=== PATIENT | female | born 1990 | race Hispanic/Latino ===

== ENCOUNTER 2017-05-25 16:43 | Emergency (ER) | payer MEDICAID, SELFPAY ==
[2017-05-25 18:50] LABS: CONTROL LINE UCG INT CTR LINE PRESENT; URINE PREG TEST NEGATIVE (NEGATIVE)
[2017-05-25 19:00] LABS: KETONE, URINE AUTO RFX NEGATIVE (NEGATIVE); LEUKOCYTE ESTERASE UR AUTO RFX 2+ (NEGATIVE); MUCUS, URINE RFX SMALL (NEGATIVE); NITRITE, URINE AUTO RFX NEGATIVE (NEGATIVE); RBC, URINE AUTO RFX 9 /HPF (0-3); SPECIFIC GRAVITY UR AUTO RFX 1.013 (1.002-1.035); SQUAM EPITHELIAL CELL UR AURFX 2 /HPF (0-6); WBC, URINE AUTO RFX 115 /HPF (0-3)
[2017-05-25] MEDS: MORPHINE 4 MG/ML 1ML VIAL (J2270) IV ×2 (20:32)
[2017-05-25] MEDS: NS 1,000 ML IV ×2 (20:32)
[2017-05-25 20:33] LABS: BASO % 0.3 % (0.0-1.0); EOS # 0.1 10^3/uL (0.0-0.50); EOS % 0.5 % (0.0-3.0); HEMATOCRIT 40.8 % (36.0-47.0); HEMOGLOBIN 13.8 g/dl (12.0-16.0); IMMATURE GRANULOCYTE % 0.3 % (0-3.0); LYMPH % 28.1 % (24.0-44.0); MEAN CORPUSCULAR HEMOGLOBIN 30.3 pg (27.0-33.0); MEAN CORPUSCULAR HGB CONC 33.8 g/dl (32.0-36.5); MEAN CORPUSCULAR VOLUME 89.5 fl (80.0-96.0); MONO # 0.8 10^3/uL (0.0-0.8); MONO % 7.7 % (0.0-5.0); NEUTROPHILS # 6.7 10^3/uL (1.8-7.7); NEUTROPHILS % 63.1 % (36.0-66.0); PLATELET COUNT, AUTOMATED 239 10^3/uL (150-450); RED BLOOD COUNT 4.56 10^6/uL (4.00-5.40); RED CELL DISTRIBUTION WIDTH 12.4 % (11.5-14.5); WHITE BLOOD COUNT 10.6 10^3/uL (4.0-10.0)
[2017-05-25 21:05] LABS: ALBUMIN 4.6 GM/DL (3.2-5.2); ALBUMIN/GLOBULIN RATIO 1.24 (1.00-1.93); ALKALINE PHOSPHATASE 81 U/L (45-117); ALT/SGPT 18 U/L (12-78); ANION GAP 9 MEQ/L (8-16); AST/SGOT 17 U/L (7-37); BILIRUBIN,DIRECT 0.1 MG/DL (0.0-0.2); BILIRUBIN,TOTAL 0.3 MG/DL (0.2-1.0); BLOOD UREA NITROGEN 8 MG/DL (7-18); CALCIUM LEVEL 9.3 MG/DL (8.5-10.1); CARBON DIOXIDE LEVEL 25 MEQ/L (21-32); CHLORIDE LEVEL 106 MEQ/L (98-107); CREATININE FOR GFR 0.68 MG/DL (0.55-1.30); GLOMERULAR FILTRATION RATE > 60.0 (>60); GLUCOSE, FASTING 86 MG/DL (70-100); LIPASE 103 U/L (73-393); POTASSIUM SERUM 4.1 MEQ/L (3.5-5.1); SODIUM LEVEL 140 MEQ/L (136-145); TOTAL PROTEIN 8.3 GM/DL (6.4-8.2)
[2017-05-25] MEDS: CIPROFLOXACIN 400 MG in APPROPRIATE DILUENT 1 EA IV (21:29)
== END 2017-05-25 22:36 | disposition home or self-care (01) ==
LOC: M ED 16:43
DX: N10 Acute pyelonephritis (principal); K59.00 Constipation, unspecified; Z79.82 Long term (current) use of aspirin
CPT/HCPCS: J2270

== ENCOUNTER → 2018-01-02 | Outpatient (REF) | payer OTHER | LOC: M LAB REF 17:35 | DX: Z12.4 Encounter for screening for malignant neoplasm of cervix (principal) ==

== ENCOUNTER 2019-05-18 09:09 | Emergency (ER) | payer BC, OTHER ==
[~2019-05-18] VITALS: Ht 167.6 cm; Wt 57.8 kg
[2019-05-18 09:09] VITALS: BP 125/61
[~2019-05-18 09:09] MED LIST: ASPI81TA85 PO; CIPR-249 PO
[2019-05-18] MEDS ORDERED: CETIRIZINE (ZyrTEC) 10 MG TAB PO ONE (09:45)
[2019-05-18] MEDS ORDERED: diphenhydrAMINE 25 MG CAP PO ONE (09:45)
[2019-05-18] MEDS ORDERED: predniSONE 50 MG TAB PO ONE (09:45)
[2019-05-18] MEDS ORDERED: DIPH25CA32 PO (09:56)
[2019-05-18] MEDS ORDERED: PRED10TA2 PO (09:56)
[2019-05-18] MEDS ORDERED: CETI10CH PO (09:56)
== END 2019-05-18 10:03 | disposition home or self-care (01) ==
LOC: M ED 09:09
DX: T78.40XA Allergy, unspecified, initial encounter (principal); L29.9 Pruritus, unspecified

== ENCOUNTER → 2020-10-22 | Outpatient (REF) | payer BC ==
[~2020-10-22] MED LIST changes: -ASPI81TA85 PO; +ASPI81TA86 PO; +CETI10CH PO; +DIPH25CA32 PO; +PRED10TA2 PO
== END ==
LOC: M LAB REF 19:51
PROVIDERS: ATTEND Nurse Practitioner Family
DX: R39.0 Extravasation of urine (principal)

== ENCOUNTER → 2022-08-15 | Outpatient (CLI) | payer BC ==
[~2022-08-15] MED LIST changes: +DIPH-435 PO; -DIPH25CA32 PO
[2022-08-15 17:51] LABS: HEMATOCRIT 35.4 % (36.0-47.0); MEAN CORPUSCULAR HEMOGLOBIN 31.3 pg (27.0-33.0); MEAN CORPUSCULAR HGB CONC 33.9 g/dl (32.0-36.5); MEAN CORPUSCULAR VOLUME 92.2 fl (80.0-96.0); PLATELET COUNT, AUTOMATED 245 10^3/uL (150-450); RED BLOOD COUNT 3.84 10^6/uL (4.00-5.40); WHITE BLOOD COUNT 9.6 10^3/uL (4.0-10.0)
[2022-08-15 18:24] LABS: HIV 1&2 SCREEN NEGATIVE (NEGATIVE)
[2022-08-15 19:38] LABS: GC DNA AMPLIFICATION NEGATIVE (NEGATIVE)
== END ==
LOC: M PLALAB 15:06
PROVIDERS: ATTEND Advanced Practice Midwife
DX: Z34.01 Encounter for supervision of normal first pregnancy, first trimester (principal); Z3A.00 Weeks of gestation of pregnancy not specified

== ENCOUNTER → 2022-09-19 | Outpatient (CLI) | payer BC | LOC: M PLALAB 15:31 | PROVIDERS: ATTEND Advanced Practice Midwife | DX: Z34.82 Encounter for supervision of other normal pregnancy, second trimester (principal) ==

== ENCOUNTER → 2022-10-30 | Outpatient (CLI) | payer BC | LOC: M WHC 07:07 | PROVIDERS: ATTEND Obstetrics & Gynecology | DX: Z34.92 Encounter for supervision of normal pregnancy, unspecified, second trimester (principal) ==

== ENCOUNTER → 2023-01-08 | Outpatient (CLI) | payer BC ==
[2023-01-08 16:04] LABS: HEMATOCRIT 30.6 % (36.0-47.0); HEMOGLOBIN 10.1 g/dl (12.0-15.5); MEAN CORPUSCULAR HEMOGLOBIN 31.1 pg (27.0-33.0); MEAN CORPUSCULAR VOLUME 94.2 fl (80.0-96.0); PLATELET COUNT, AUTOMATED 221 10^3/uL (150-450); RED BLOOD COUNT 3.25 10^6/uL (4.00-5.40); WHITE BLOOD COUNT 10.9 10^3/uL (4.0-10.0)
== END ==
LOC: M PLALAB 12:12
PROVIDERS: ATTEND Advanced Practice Midwife
DX: Z34.02 Encounter for supervision of normal first pregnancy, second trimester (principal); Z3A.00 Weeks of gestation of pregnancy not specified

== ENCOUNTER → 2023-02-27 | Outpatient (REF) | payer BC | LOC: M SFHCWAGY 12:54 | PROVIDERS: ATTEND Pediatrics | DX: Z34.93 Encounter for supervision of normal pregnancy, unspecified, third trimester (principal) ==

== ENCOUNTER 2023-03-28 02:56 | Inpatient (IN) | payer BC ==
[2023-03-28] VITALS (31 sets, daily range): BP systolic 89–135; BP diastolic 50–82; TEMP 98.5
[~2023-03-28] VITALS: Ht 167.6 cm; Wt 72.5 kg
[2023-03-28] MEDS ORDERED: IRON27TA2 PO (03:07)
[2023-03-28] MEDS ORDERED: PRENTAB9 PO (03:07)
[2023-03-28] MEDS ORDERED: HOME MED LIST COMPLETE! XX SCH (03:10)
[2023-03-28] MEDS ORDERED: METHYLERGONOVINE MALEATE 0.2MG/ML 1ML VIAL IM PRN (03:30)
[2023-03-28] MEDS ORDERED: CARBOPROST TROMETHAMINE 250 MCG/ML AMP IM PRN (03:30)
[2023-03-28] MEDS ORDERED: TRANEXAMIC ACID INJection 1,000 MG in NS 100 ML IV PRN (03:30)
[2023-03-28] MEDS ORDERED: PENICILLIN G POTASSIUM 5 MU IV 5 MU in D5W MINI-BAG PLUS 100 ML IV STA (03:30)
[2023-03-28] MEDS ORDERED: OXYTOCIN DRIP 30 UNITS in IV 1 EA IV PRN ×4 (03:30)
[2023-03-28] MEDS ORDERED: LACTATED RINGER'S 1000 ML IV PRN (03:30)
[2023-03-28] MEDS: LR 1,000 ML IV SCH ×3 (03:47→20:57)
[2023-03-28 04:03] LABS: HEMATOCRIT 33.1 % (36.0-47.0); HEMOGLOBIN 11.2 g/dl (12.0-15.5); MEAN CORPUSCULAR HEMOGLOBIN 30.4 pg (27.0-33.0); MEAN CORPUSCULAR HGB CONC 33.8 g/dl (32.0-36.5); MEAN CORPUSCULAR VOLUME 89.7 fl (80.0-96.0); PLATELET COUNT, AUTOMATED 197 10^3/uL (150-450); RED BLOOD COUNT 3.69 10^6/uL (4.00-5.40); WHITE BLOOD COUNT 10.3 10^3/uL (4.0-10.0)
[2023-03-28] MEDS ORDERED: BUTORPHANOL 2 MG/ML 1ML VIAL IV ONE (05:15)
[2023-03-28] MEDS ORDERED: PROMETHAZINE 25MG/ML 1ML VIAL IV ONE (05:15)
[2023-03-28] MEDS ORDERED: OXYTOCIN DRIP 30 UNITS in IV 1 EA IV SCH ×2 (06:00→22:55)
[2023-03-28] MEDS: PEN G POT 3,000,000 UNIT/50 ML 3,000,000 UNIT in IV 1 EA IV SCH ×4 (07:52→20:23)
[2023-03-28] MEDS ORDERED: ONDANSETRON 4MG 2ML VIAL IV PRN ×3 (16:40→23:05)
[2023-03-28] MEDS ORDERED: FENTANYL/ROPIVACAINE/NACL BAG 100 ML EPIDURAL SCH (16:40)
[2023-03-28] MEDS ORDERED: EPIDURAL/PCA KEYS XX PRN (16:40)
[2023-03-28] MEDS ORDERED: NALOXONE INJ 0.4MG/1ML VIAL IV PRN ×2 (16:40→23:05)
[2023-03-28] MEDS ORDERED: LR 500 ML IV PRN (16:40)
[2023-03-28] MEDS ORDERED: diphenhydrAMINE 50MG/ML VIAL IV PRN (16:40)
[2023-03-28] MEDS ORDERED: FENTANYL 2MCG/ML ROPIVACAINE 0.2% IN 0.9% NACL 100ML IVBAG As Ordered ONE (16:46)
[2023-03-28] MEDS: ePHEDrine SULFATE 25 MG/5 ML(5MG/ML) SYRINGE IVP PRN ×2 (18:04→18:19)
[2023-03-28] MEDS ORDERED: diphenhydrAMINE 50MG/ML VIAL IV ONE ×2 (20:15)
[2023-03-28] MEDS ORDERED: LACTATED RINGER'S 1000 ML IV STA (21:25)
[2023-03-28] MEDS ORDERED: ceFAZolin SOD 2 GM in IV 1 EA IV ONE (21:25)
[2023-03-28] MEDS ORDERED: BICITRA 30ML SOLN UDC PO ONE (21:25)
[2023-03-28] MEDS ORDERED: AZITHROMYCIN INJ 500 MG, VIAL MATE ADAPTER 1 EACH in NS 250 ML IV ONE (21:25)
[2023-03-28] MEDS ORDERED: ONDANSETRON 4MG 2ML VIAL As Ordered ONE (22:34)
[2023-03-28] MEDS ORDERED: CHLOROPROCAINE PRES. FREE 3% 20ML VIAL As Ordered ONE (22:34)
[2023-03-28] MEDS ORDERED: LIDOCAINE 2% W/EPINEPHRINE 20ML VIAL **PRES FREE As Ordered ONE (22:34)
[2023-03-28] MEDS ORDERED: MORPHINE PRES-FREE INJ 10 MG/10 ML VIAL As Ordered ONE (22:34)
[2023-03-28] MEDS ORDERED: PHENYLephrine 500MCG 5ML (100MCG/ML) SYRINGE As Ordered ONE (22:44)
[2023-03-28] MEDS ORDERED: RHOGAM 300MCG (1500IU) INJ IM SCH (22:55)
[2023-03-28] MEDS ORDERED: ACETAMINOPHEN 500 MG TAB PO PRN (22:55)
[2023-03-28] MEDS ORDERED: MORPHINE 4 MG/ML 1ML VIAL IV PRN (22:55)
[2023-03-28] MEDS ORDERED: PERCOCET 5MG/325MG TAB PO PRN ×2 (22:55)
[2023-03-28] MEDS ORDERED: SIMETHICONE 80MG CHEW TAB PO PRN (22:55)
[2023-03-28] MEDS ORDERED: ANUSOL HC CREAM 30GM TOP PRN (22:55)
[2023-03-28] MEDS ORDERED: IBUPROFEN 800 MG TAB PO PRN (22:55)
[2023-03-28] MEDS ORDERED: COLA100C5 PO (23:02)
[2023-03-28] MEDS ORDERED: IBUP80TA PO (23:02)
[2023-03-28] MEDS ORDERED: PERCOCET PO (23:02)
[2023-03-28] MEDS ORDERED: **NOTE PATIENT COMMENT** MISC XX SCH (23:05)
[2023-03-28] MEDS ORDERED: METOCLOPRAMIDE INJ 10MG/2ML VIAL IV PRN (23:05)
[2023-03-28] MEDS ORDERED: ACETAMINOPHEN 1000MG 100ML IV BAG As Ordered ONE (23:42)
[2023-03-28] MEDS ORDERED: OXYTOCIN 30UNITS IN 0.9% NaCl 500ML IV BAG As Ordered ONE (23:43)
[2023-03-28] MEDS ORDERED: KETOROLAC 60MG 2ML VIAL As Ordered ONE (23:43)
[2023-03-29] VITALS (10 sets, daily range): BP systolic 104–117; BP diastolic 53–61; O2SAT 96–98
[2023-03-29] MEDS: LR 1,000 ML IV SCH ×2 (03:43→11:09)
[2023-03-29] MEDS: KETOROLAC 30 MG/ML 1ML VIAL IV SCH ×3 (05:13→16:47)
[2023-03-29 06:19] LABS: MEAN CORPUSCULAR HEMOGLOBIN 30.6 pg (27.0-33.0); MEAN CORPUSCULAR HGB CONC 33.8 g/dl (32.0-36.5); MEAN CORPUSCULAR VOLUME 90.3 fl (80.0-96.0); PLATELET COUNT, AUTOMATED 172 10^3/uL (150-450); RED BLOOD COUNT 2.88 10^6/uL (4.00-5.40); WHITE BLOOD COUNT 19.4 10^3/uL (4.0-10.0)
[2023-03-29 06:52] LABS: HEMOGLOBIN 8.8 g/dl (12.0-15.5)
[2023-03-29] MEDS: SLF 3 ML SYR IV SCH ×3 (07:05→16:47)
[2023-03-29] MEDS: PRENATAL VITAMINS CHEWABLE TABLET PO SCH (09:36)
[2023-03-29] MEDS: DOCUSATE SODIUM 100MG CAPSULE PO SCH ×2 (09:36→19:56)
[2023-03-30] MEDS: IBUPROFEN 800 MG TAB PO SCH ×3 (00:54→17:08)
[2023-03-30 02:00] VITALS: BP 102/58; O2SAT 98
[2023-03-30 06:00] VITALS: BP 104/56; O2SAT 98
[2023-03-30] MEDS ORDERED: INFLUENZA QUADRIVALENT PF VACCINE 0.5ML SYRINGE IM.IMMUN ONE (09:00)
[2023-03-30] MEDS ORDERED: MEASLES,MUMPS,RUBELLA VACCINE INJ (MMR-II) SC.IMMUN ONE (09:00)
[2023-03-30] MEDS: PRENATAL VITAMINS CHEWABLE TABLET PO SCH (09:24)
[2023-03-30] MEDS: DOCUSATE SODIUM 100MG CAPSULE PO SCH (09:24)
[2023-03-30 10:00] VITALS: BP 114/56; O2SAT 100
[2023-03-30 15:30] VITALS: BP 114/58; O2SAT 100
== END 2023-03-30 18:35 | disposition home or self-care (01) | DRG 540 ==
LOC: M LDO 02:56 → M LDI 03:27 → M OBS 03-29 00:30
PROVIDERS: ADMIT Obstetrics & Gynecology; ATTEND Obstetrics & Gynecology
PROC: 10D00Z1 Extraction of Products of Conception, Low, Open Approach (ICD-10-PCS; principal; 2023-03-28 21:49)
DX: O48.0 Post-term pregnancy (principal); O62.0 Primary inadequate contractions; Z37.0 Single live birth; Z3A.40 40 weeks gestation of pregnancy